=== PATIENT | female | born 1985 | race Two or more races ===

== ENCOUNTER 2016-09-03 15:47 | Emergency (ER) | payer SELFPAY ==
[~2016-09-03] VITALS: Ht 167.6 cm; Wt 154.2 kg
[2016-09-03 17:03] VITALS: BP 134/94
[2016-09-03] MEDS ORDERED: ERYT1OIN6 EACHEYE (17:37)
--- NOTE | 2016-09-03 17:38 | PHYS DOC ---
Past Medical History Past Medical History: No Pertinent History Past Surgical History: No Surgical History Alcohol Use: Rarely Drug Use: None Adult General Chief Complaint Chief Complaint: SKIN RASH/ABSCESS [facility] HPI Patient is a 31 year old female presents emergency department with rash to bilateral eyes with left eye having drainage and discharge. Patient states that she has been around a dog in which she has normally not been around. Patient states that she has not been using any eye makeup around her eyes and still continues to have the rash and discomfort. Patient states she's been placing cream over the area without relief. She states that it itches although it does feel like it is cracking. Patient denies fever, chills or nausea vomiting. Review of Systems Review of Systems Constitutional: Denies fever or chills [] Eyes: Denies change in visual acuity, redness, or eye pain [] HENT: Denies nasal congestion or sore throat. Rash around bilateral eye Respiratory: Denies cough or shortness of breath [] Cardiovascular: No additional information not addressed in HPI [] GI: Denies abdominal pain, nausea, vomiting, bloody stools or diarrhea [] : Denies dysuria or hematuria [] Musculoskeletal: Denies back pain or joint pain [] Integument: Denies rash or skin lesions [] Neurologic: Denies headache, focal weakness or sensory changes [] Allergies Allergies Allergies Coded Allergies Type Severity Reaction Last Updated Verified No Known Drug Allergies 05/30/15 No Physical Exam Physical Exam Constitutional: Well developed, well nourished, no acute distress, non-toxic appearance. [] HENT: Normocephalic, atraumatic, bilateral external ears normal, oropharynx moist, no oral exudates, nose normal. [] Eyes: PERRLA, EOMI, conjunctiva normal, no discharge. Bilateral eyelids appear to be slightly red. Patient was noted to have a rash below the left eye. Neck: Normal range of motion, no tenderness, supple, no stridor. [] Cardiovascular:Heart rate regular rhythm, no murmur [] Lungs & Thorax: Bilateral breath sounds clear to auscultation [] Skin: Warm, dry, no erythema, no rash. [] Back: No tenderness Extremities: No tenderness, no cyanosis, no clubbing, ROM intact, no edema. [] Neurologic: Alert and oriented X 3, normal motor function, normal sensory function, no focal deficits noted. [] Psychologic: Affect normal, judgement normal, mood normal. [] Current Patient Data Vital Signs Vital Signs Date Time Temp Pulse Resp B/P Pulse Ox O2 Delivery O2 Flow Rate FiO2 09/03/16 17:03 97.9 80 18 97 Room Air 97.9 EKG EKG [] Radiology/Procedures Radiology/Procedures [] Course & Med Decision Making Course & Med Decision Making Pertinent Labs and Imaging studies reviewed. (See chart for details) Patient was instructed to continue to wash the face with soap and water and apply antibiotic ointment to the areas. Patient was also encouraged to follow- up with primary care physician in the next 3-5 days. Signs and symptoms to return back to emergency department as been provided. Patient agrees with discharge instructions treatment regimens and follow-up recommendations. [] Dragon Disclaimer Dragon Disclaimer This electronic medical record was generated, in whole or in part, using a voice recognition dictation system. Departure Departure Impression: Primary Impression: Contact dermatitis Disposition: HOME, SELF-CARE Condition: STABLE Referrals: NO PCP (PCP) Patient Instructions: Contact Dermatitis, [id number] Additional Instructions: Activity as tolerated. Make sure you clean your face with facial cleanser twice a day. Apply antibiotic ointment as prescribed. You may also use cool packs to the eyes. Follow up primary care physician next 3-5 days. Return back to emergency prior signs symptoms of become worse. Scripts Erythromycin Base (Erythromycin)3.5 Gm Oint...g.1 Luis EACHTechpackerE BID #3.5 GM Prov:LISETTE JIMENEZ NP 09/03/16 LISETTE JIMENEZ NP Sep 03, 2016 17:37
[2016-09-03] MEDS ORDERED: PRED20TA PO (17:39)
== END 2016-09-03 17:41 | disposition home or self-care (01) ==
LOC: ER 15:47
DX: L25.9 Unspecified contact dermatitis, unspecified cause (principal)
CPT/HCPCS: 99283